=== PATIENT | male | born 1945 | race Hispanic/Latino ===

== ENCOUNTER 2016-12-16 09:58 | Outpatient (CLI) | payer MEDICARE ==
--- NOTE | 2016-12-16 13:59 | XRay Report ---
ROUTINE CHEST, TWO VIEWS: PA and lateral views demonstrate the heart and mediastinal contour to be of normal size and shape. The lungs are clear and fully expanded and the soft tissues and bony structures are normal. IMPRESSION: Normal study.
== END 2016-12-16 09:59 | disposition home or self-care (01) ==
LOC: SPVIMAG 09:58
PROVIDERS: ATTEND Internal Medicine
DX: R05 Cough (principal)
CPT/HCPCS: 71020

== ENCOUNTER 2017-01-04 11:25 | Outpatient (CLI) | payer MEDICARE ==
--- NOTE | 2017-01-04 15:05 | Magnetic Resonance Report ---
MRI CERVICAL SPINE WITHOUT CONTRAST: 01/04/17 CLINICAL: Cervical radiculopathy. TECHNIQUE: Sagittal T1,T2 and STIR and axial gradient T2* sequences on a 1.5 Laura magnet. FINDINGS:Normal vertebral body height and alignment. Mild disc space narrowing at C3-4, C4-5, C5-6 and C6-7. Normal marrow signal. The spinal cord is normal size normal signal. The cerebellar tonsils are in normal position. C2-3: Moderate size broad based disc-osteophyte producing partial effacement of the thecal sac and mild mass effect on the cord. Uncal osteophytes and mild bilateral neural foraminal narrowing. C3-4:Small broad-based central disc-osteophyte producing partial effacement of the thecal sac no cord compression. Uncal osteophytes and mild bilateral neural foraminal narrowing. C4-5: Small broad-based central disc-osteophyte producing partial effacement of the thecal sac but no cord compression. Uncal osteophytes and mild bilateral neural foraminal narrowing. C5-6:Moderate size broad-based central disc-osteophyte producing partial effacement of the thecal sac but no cord compression. Uncal osteophytes and moderate bilateral neural foraminal narrowing. C6-7:Broad-based posterior osteophyte producing partial effacement of the thecal sac but no cord compression. Uncal osteophytes and moderate bilateral neural foraminal narrowing. C7-T1:Intact. IMPRESSION: Multilevel degenerative disc disease with disc-osteophytes producing mild multilevel spinal canal stenosis and uncal osteophytes producing varying degrees of multilevel bilateral neural foraminal stenosis. No focal disc protrusions. No cord lesion.
== END 2017-01-04 11:26 | disposition home or self-care (01) ==
LOC: SPVIMAG 11:25
PROVIDERS: ATTEND Internal Medicine
DX: M48.02 Spinal stenosis, cervical region (principal); M50.10 Cervical disc disorder with radiculopathy, unspecified cervical region; M25.78 Osteophyte, vertebrae
CPT/HCPCS: 72141